=== PATIENT | female | born 1935 | race Caucasian/White ===

== ENCOUNTER 2017-10-08 15:44 | Emergency (ER) | payer OTHER, BC ==
[2017-10-08 16:01] VITALS: TEMP 97.8; BMI 22.4
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
[2017-10-08] MEDS ORDERED: SODIUM CHLORIDE 500 ML IV STA (16:24)
[2017-10-08 17:20] LABS: BASO % 0.7 % (0-2.0); EOS % 1.8 % (0-4.5); HEMATOCRIT 33.7 % (32.4-45.2); HEMOGLOBIN 11.2 GM/dL (10.7-15.3); LYMPH % 11.8 % (8-40); MCH 30.7 pg (25.7-33.7); MCHC 33.1 g/dl (32.0-36.0); MEAN CELL VOLUME 92.6 fl (80-96); MEAN PLT VOLUME 9.3 fl (7.5-11.1); NEUT % 77.7 % (42.8-82.8); PLATELET COUNT 184 K/MM3 (134-434); RBC 3.64 M/mm3 (3.60-5.2); WHITE BLOOD COUNT 7.6 K/mm3 (4.0-10.0)
[2017-10-08 17:39] LABS: URINE APPEARANCE CLEAR; URINE BILIRUBIN NEGATIVE (<2.0 mg/dL); URINE COLOR YELLOW; URINE GLUCOSE (UA) NEGATIVE (NEGATIVE); URINE KETONE NEGATIVE (NEGATIVE); URINE LEUK ESTERASE TRACE (NEGATIVE); URINE NITRITE NEGATIVE (NEGATIVE); URINE PROTEIN NEGATIVE (NEGATIVE)
[2017-10-08 17:44] LABS: EPI CELLS RARE /HPF (FEW); URINE MUCUS RARE
[2017-10-08 17:50] LABS: ALBUMIN 3.3 g/dl (3.4-5.0); ANION GAP 5 (8-16); BILIRUBIN,TOTAL 0.3 mg/dL (0.2-1.0); BLOOD UREA NITROGEN 21 mg/dL (7-18); CALCIUM 8.1 mg/dL (8.5-10.1); CHLORIDE 109 mmol/L (98-107); CO2 29 mmol/L (21-32); CREATININE 0.9 mg/dL (0.55-1.02); GLUCOSE,RANDOM 79 mg/dL (74-106); POTASSIUM 4.2 mmol/L (3.5-5.1); SGOT/AST 15 U/L (15-37); SGPT/ALT 12 U/L (12-78); SODIUM 143 mmol/L (136-145); TOT PROT 6.4 g/dl (6.4-8.2)
[2017-10-08 17:52] LABS: ALK PHOS 51 U/L (45-117)
[2017-10-08 19:23] VITALS: BP 114/51; PULSE 70
--- NOTE | 2017-10-09 13:22 | EKG ---
Test Reason : Blood Pressure : / mmHG Vent. Rate : 059 BPM Atrial Rate : 059 BPM P-R Int : 198 ms QRS Dur : 070 ms QT Int : 476 ms P-R-T Axes : 076 004 107 degrees QTc Int : 471 ms SINUS BRADYCARDIA VOLTAGE CRITERIA FOR LEFT VENTRICULAR HYPERTROPHY ABNORMAL ECG WHEN COMPARED WITH ECG OF 16-JUL-2012 10:16, QUESTIONABLE CHANGE IN QRS AXIS NONSPECIFIC T WAVE ABNORMALITY NO LONGER EVIDENT IN INFERIOR LEADS T WAVE INVERSION NOW EVIDENT IN LATERAL LEADS Confirmed by KELLEN GROVE, TONIA ([id number]) on 10/09/2017 1:22:00 PM Referred By: Confirmed By:TONIA FOREMAN MD
== END 2017-10-08 21:01 | disposition home or self-care (01) ==
LOC: JER 15:44
DX: R55 Syncope and collapse (principal); I95.89 Other hypotension; E78.5 Hyperlipidemia, unspecified; Z87.19 Personal history of other diseases of the digestive system; Z87.448 Personal history of other diseases of urinary system; Z86.2 Personal history of diseases of the blood and blood-forming organs and certain disorders involving the immune mechanism
CPT/HCPCS: 36415; 71045-TC-FY; 80053; 81003; 81015; 82550; 82553; 84484; 85025; 87086; 93005; 93010; 99284-25; J7030

== ENCOUNTER 2018-12-29 11:54 | Inpatient (IN) | payer OTHER, BC | END 2019-01-01 13:35 | LOC: J7W 12-30 06:02 → JER 11:54 → JERBED 18:51 ==

== ENCOUNTER 2023-11-25 13:43 | Inpatient (IN) | payer OTHER, BC ==
[2023-11-25] MEDS ORDERED: RAPID SEQUENCE INTUBATION KIT NR ONE (14:03)
[2023-11-25] MEDS ORDERED: ROCURONIUM BROMIDE 50 MG/5 ML SYRINGE ONE ×2 (14:04→14:56)
[2023-11-25] MEDS ORDERED: ETOMIDATE 20 MG/10 ML VIAL IVPUSH ONE (14:05)
[2023-11-25] MEDS: ETOMIDATE 20 MG/10 ML VIAL IVPUSH ONE (14:10)
[2023-11-25] MEDS: EPINEPHrine 1:10,000 (P-F SYR) 1 MG/10 ML DISP.SYRIN IVPUSH ONE ×3 (14:10→17:31)
[2023-11-25] MEDS: ROCURONIUM BROMIDE 50 MG/5 ML VIAL IV ONE (14:10)
[2023-11-25 14:18] LABS: BASO % 0.4 % (0-2.0); EOS % 0.2 % (0-4.5); HEMATOCRIT 40.8 % (32.4-45.2); HEMOGLOBIN 13.2 GM/dL (10.7-15.3); LYMPH % 9.2 % (8-40); MCH 30.9 pg (25.7-33.7); MCHC 32.3 g/dl (32.0-36.0); MEAN CELL VOLUME 95.7 fl (80-96); MONO % 1.8 % (3.8-10.2); NEUT % 88.4 % (42.8-82.8); PLATELET COUNT 246 10^3/uL (134-434); RBC 4.26 M/mm3 (3.60-5.2); RDW 14.1 % (11.6-15.6); WHITE BLOOD COUNT 16.4 K/mm3 (4.0-10.0)
[2023-11-25] MEDS: SODIUM CHLORIDE 0.9% 1000 ML INFUS.BAG IV STA (14:19)
[2023-11-25 14:23] LABS: INR 0.95 (0.83-1.09); PROTHROMBIN TIME (PATIENT) 10.7 SEC (9.7-13.0)
[2023-11-25] MEDS ORDERED: VANCOMYCIN/WATER 1250 MG 1,250 MG/250 ML BAG IVPB ONE (14:23)
[2023-11-25] MEDS ORDERED: PIPERACILLIN/TAZOB 4.5 GM 4.5 GM/100 ML BAG IVPB ONE (14:23)
[2023-11-25] MEDS ORDERED: NOREPINEPHRINE BITARTRATE/D5W 8 MG/250 ML BAG IVPB ONE (14:24)
[2023-11-25 14:26] LABS: ACTIVATED PTT 18.9 SECONDS (25.2-36.5)
[2023-11-25 14:32] LABS: VENOUS PCO2 66.7 mmHg (38-52)
[2023-11-25] MEDS: VANCOMYCIN/WATER 1250 MG 1,250 MG/250 ML BAG IVPB ONE (14:34)
[2023-11-25] MEDS: PIPERACILLIN/TAZOB 4.5 GM 4.5 GM in DEXTROSE 5%-WATER 100 ML IVPB ONE (14:34)
[2023-11-25 14:52] LABS: VENOUS PH 7.124 (7.310-7.410)
[2023-11-25 14:55] LABS: EPI CELLS 12 /uL (0-25.1); HYALINE CASTS 0 /uL (0-3.1); PH,URINE 7.5 (5.0-8.0); URINE APPEARANCE CLEAR; URINE BACTERIA 181 /uL (0-1359); URINE BILIRUBIN NEGATIVE (NEGATIVE); URINE COLOR YELLOW; URINE GLUCOSE (UA) TRACE (NEGATIVE); URINE KETONE NEGATIVE (NEGATIVE); URINE LEUK ESTERASE NEGATIVE (NEGATIVE); URINE NITRITE NEGATIVE (NEGATIVE); URINE PROTEIN 2+ (NEGATIVE); URINE RBC 6 /uL (0-23.9); URINE WBC 32 /uL (0-25.8)
[2023-11-25] MEDS ORDERED: FENTANYL NS IVPB 500 MCG/100 ML BAG IVPB SCH (15:00)
[2023-11-25 15:08] LABS: LACTIC ACID 8.8 mmol/L (0.4-2.0)
[2023-11-25] MEDS ORDERED: FENTANYL NS IVPB 500 MCG/100 ML BAG IVPB ONE (15:08)
[2023-11-25] MEDS: FENTANYL NS IVPB 500 MCG/100 ML BAG IVPB SCH (15:13)
[2023-11-25 15:14] LABS: POTASSIUM 3.9 mmol/L (3.5-5.1)
[2023-11-25 15:16] LABS: CALCIUM 9.4 mg/dL (8.5-10.1)
[2023-11-25 15:17] LABS: ALBUMIN 3.8 g/dl (3.4-5.0); BLOOD UREA NITROGEN 29.5 mg/dL (7-18)
[2023-11-25 15:19] LABS: CREATININE 1.9 mg/dL (0.55-1.3)
[2023-11-25 15:21] LABS: BILIRUBIN,TOTAL 0.7 mg/dL (0.2-1); TOT PROT 7.1 g/dl (6.4-8.2)
[2023-11-25] MEDS ORDERED: INSULIN (LEVEMIR) 100 UNITS/ML UNITS SQ ONE (16:23)
[2023-11-25 16:51] LABS: LACTIC ACID 9.1 mmol/L (0.4-2.0)
[2023-11-25] MEDS: NOREPINEPHRINE BITARTRATE/D5W 8 MG/250 ML BAG IVPB SCH (17:00)
[2023-11-25 17:27] LABS: ARTERIAL BLD GAS O2 SATURATION 99.7 % (95-98); ARTERIAL BLOOD GAS PO2 335.5 mmHg (80-100); ARTERIAL BLOOD GAS pH 7.226 (7.350-7.450)
[2023-11-25] MEDS: DEXTROSE 5% IVPB SCH (17:32)
[2023-11-25] MEDS: WATER IVPB SCH (17:32)
[2023-11-25] MEDS: VANCOMYCIN IVPB SCH (17:32)
[2023-11-25] MEDS: SODIUM CHLORIDE 0.9% 500 ML INFUS.BAG IV ONE (17:36)
[2023-11-25] MEDS ORDERED: VANCOMYCIN/WATER FOR INJ (PEG) 750 MG/150 ML BAG IVPB SCH (17:46)
[2023-11-25] MEDS ORDERED: PIPERACILLIN/TAZOB 2.25 GM 2.25 GM in DEXTROSE 5%-WATER - 50 ML IVPB SCH (18:00)
[2023-11-25] MEDS: DEXMEDETOMIDINE PREMIX 400 MCG/100 ML BAG IVPB SCH (19:14)
[2023-11-25] MEDS: SODIUM CHLORIDE 1,000 ML IV SCH (19:27)
[2023-11-25 20:11] LABS: LACTIC ACID 5.5 mmol/L (0.4-2.0)
[2023-11-25] MEDS ORDERED: GABAPENTIN 300 MG CAPSULE PO SCH (22:00)
[2023-11-25] MEDS: PIPERACILLIN/TAZOB 2.25 GM 2.25 GM in DEXTROSE 5%-WATER - 50 ML IVPB SCH (23:13)
[2023-11-25] MEDS: HEPARIN NA (PORCINE) 5,000 UNITS/ML 1ML VIAL SQ SCH (23:13)
[2023-11-25] MEDS: MUPIROCIN 2% TOPICAL OINTMENT FOR DECOLONIZATION NS SCH (23:14)
[2023-11-25] MEDS: LACTATED RINGERS SOLUTION 1000 ML INFUS.BAG IV ONE (23:14)
[2023-11-25] MEDS: CHLORHEXIDINE GLUCONATE 4% CLEANSER FOR DECOLONIZATION TP SCH (23:15)
[2023-11-26] MEDS ORDERED: FENTANYL NS IVPB 500 MCG/100 ML BAG IVPB ONE (04:13)
[2023-11-26 07:48] LABS: HEMATOCRIT 35.1 % (32.4-45.2); HEMOGLOBIN 11.5 GM/dL (10.7-15.3); MCH 30.9 pg (25.7-33.7); MCHC 32.6 g/dl (32.0-36.0); MEAN CELL VOLUME 94.6 fl (80-96); MEAN PLT VOLUME 9.2 fl (7.5-11.1); PLATELET COUNT 159 10^3/uL (134-434); RBC 3.71 M/mm3 (3.60-5.2); RDW 13.9 % (11.6-15.6); WHITE BLOOD COUNT 15.3 K/mm3 (4.0-10.0)
[2023-11-26 08:07] LABS: POTASSIUM 3.6 mmol/L (3.5-5.1)
[2023-11-26 08:18] LABS: MAGNESIUM 1.7 mg/dL (1.8-2.4)
[2023-11-26 08:20] LABS: CREATININE 1.5 mg/dL (0.55-1.3); PHOSPHOROUS 4.3 mg/dL (2.5-4.9)
[2023-11-26 08:21] LABS: ALBUMIN 2.7 g/dl (3.4-5.0); CALCIUM 7.9 mg/dL (8.5-10.1)
[2023-11-26 08:22] LABS: BILIRUBIN,TOTAL 0.9 mg/dL (0.2-1); TOT PROT 5.1 g/dl (6.4-8.2)
[2023-11-26 08:28] LABS: ARTERIAL BLD GAS O2 SATURATION 98.3 % (95-98); ARTERIAL BLOOD GAS BASE EXCESS -3.7 mmol/L (-2-2); ARTERIAL BLOOD GAS PO2 126.2 mmHg (80-100)
[2023-11-26 08:35] LABS: ALLENS TEST POSITIVE
[2023-11-26 08:37] LABS: VENT MODE CPAP/PSV; VENT RATE 16
[2023-11-26] MEDS: MAGNESIUM 2GM/50ML STERILE WATER IVPB IVPB ONE (08:54)
[2023-11-26] MEDS: DONEPEZIL HCL 10 MG TABLET (FP) PO SCH (09:23)
[2023-11-26] MEDS: ATORVASTATIN CA 20 MG TABLET (FP) PO SCH (09:23)
[2023-11-26] MEDS: CEFTRIAXONE 1 GM in DEXTROSE 5%-WATER - 50 ML IVPB SCH (09:53)
[2023-11-26] MEDS ORDERED: levETIRAcetam 250 MG TABLET PO SCH (10:00)
[2023-11-26] MEDS ORDERED: CITALOPRAM HYDROBROMIDE 20 MG TABLET PO SCH (10:00)
[2023-11-26] MEDS: levETIRAcetam 500 MG/5 ML INJECTION VIAL IVPB SCH ×2 (11:03→11:40)
[2023-11-26 12:45] LABS: ANISOCYTOSIS 0; MACROCYTOSIS 0; PLATELET ESTIMATE ADEQUATE
[2023-11-26] MEDS ORDERED: VANCOMYCIN/WATER FOR INJ (PEG) 750 MG/150 ML BAG IVPB SCH (14:00)
[2023-11-26] MEDS: MIDODRINE HCL 5 MG TABLET PO SCH (22:48)
[2023-11-27 07:32] LABS: HEMATOCRIT 32.2 % (32.4-45.2); HEMOGLOBIN 10.6 GM/dL (10.7-15.3); MCH 30.7 pg (25.7-33.7); MCHC 32.9 g/dl (32.0-36.0); MEAN CELL VOLUME 93.4 fl (80-96); MEAN PLT VOLUME 9.5 fl (7.5-11.1); PLATELET COUNT 155 10^3/uL (134-434); RBC 3.45 M/mm3 (3.60-5.2); RDW 13.7 % (11.6-15.6); WHITE BLOOD COUNT 11.2 K/mm3 (4.0-10.0)
[2023-11-27 07:41] LABS: POTASSIUM 3.1 mmol/L (3.5-5.1)
[2023-11-27 07:43] LABS: BLOOD UREA NITROGEN 32.7 mg/dL (7-18); CALCIUM 8.1 mg/dL (8.5-10.1); MAGNESIUM 2.1 mg/dL (1.8-2.4)
[2023-11-27 07:47] LABS: CREATININE 0.8 mg/dL (0.55-1.3); PHOSPHOROUS 2.2 mg/dL (2.5-4.9)
[2023-11-27] MEDS: POTASSIUM CHLORIDE ORAL LIQUID 20 MEQ/15 ML PO ONE (08:31)
[2023-11-27] MEDS: ALBUMIN HUMAN 25% 100 ML VIAL IV ONE (10:44)
[2023-11-27] MEDS: NAPH,MB-DB/K PH,MBDB POWDER PACKET PO ONE (15:57)
[2023-11-27] MEDS: SODIUM CHLORIDE 1,000 ML IV SCH (19:25)
[2023-11-27] MEDS: HEPARIN NA (PORCINE) 5,000 UNITS/ML 1ML VIAL SQ SCH (21:16)
[2023-11-27] MEDS: levETIRAcetam 500 MG/5 ML INJECTION VIAL IVPB SCH (21:17)
[2023-11-27] MEDS ORDERED: MUPIROCIN 2% TOPICAL OINTMENT FOR DECOLONIZATION NS SCH (22:00)
[2023-11-27] MEDS ORDERED: CHLORHEXIDINE GLUCONATE 4% CLEANSER FOR DECOLONIZATION TP SCH (22:00)
[2023-11-28] MEDS: FUROSEMIDE 100 MG/10 ML INJECTABLE VIAL IVPUSH ONE (01:21)
[2023-11-28] MEDS: ALBUTEROL SO4 2.5/IPRATROPIUM 0.5 INH SOL 3 ML VIAL.NEB. NEB ONE (01:36)
[2023-11-28] MEDS: ALBUTEROL SO4 2.5/IPRATROPIUM 0.5 INH SOL 3 ML VIAL.NEB. NEB SCH (07:15)
[2023-11-28] MEDS ORDERED: ALBUTEROL SO4 2.5/IPRATROPIUM 0.5 INH SOL 3 ML VIAL.NEB. NEB SCH (08:00)
[2023-11-28 08:01] LABS: HEMATOCRIT 36.3 % (32.4-45.2); HEMOGLOBIN 12.2 GM/dL (10.7-15.3); MCH 31.1 pg (25.7-33.7); MCHC 33.6 g/dl (32.0-36.0); MEAN CELL VOLUME 92.6 fl (80-96); MEAN PLT VOLUME 9.6 fl (7.5-11.1); PLATELET COUNT 170 10^3/uL (134-434); RBC 3.92 M/mm3 (3.60-5.2); RDW 13.8 % (11.6-15.6); WHITE BLOOD COUNT 12.4 K/mm3 (4.0-10.0)
[2023-11-28 08:10] LABS: CHLORIDE 107 mmol/L (98-107); SODIUM 146 mmol/L (136-145)
[2023-11-28 08:12] LABS: CALCIUM 8.7 mg/dL (8.5-10.1)
[2023-11-28 08:13] LABS: BLOOD UREA NITROGEN 25.4 mg/dL (7-18); CO2 31 mmol/L (21-32); GLUCOSE,RANDOM 131 mg/dL (74-106); MAGNESIUM 1.5 mg/dL (1.8-2.4)
[2023-11-28 08:16] LABS: PHOSPHOROUS 1.9 mg/dL (2.5-4.9)
[2023-11-28 08:18] LABS: CREATININE 0.9 mg/dL (0.55-1.3)
[2023-11-28 08:51] LABS: ANION GAP 7 mmol/L (4-13); POTASSIUM 2.5 mmol/L (3.5-5.1)
[2023-11-28] MEDS ORDERED: MIDODRINE HCL 5 MG TABLET PO SCH (10:00)
[2023-11-28] MEDS: CEFTRIAXONE 1 GM in DEXTROSE 5%-WATER - 50 ML IVPB SCH (10:36)
[2023-11-28] MEDS: ATORVASTATIN CA 20 MG TABLET (FP) PO SCH (10:36)
[2023-11-28] MEDS: POTASSIUM CHLORIDE ORAL LIQUID 20 MEQ/15 ML PO ONE ×2 (12:06→20:02)
[2023-11-28] MEDS: KCL 10 MEQ IVPB 10 MEQ/100 ML INFUS.BAG IVPB SCH ×2 (12:15→14:23)
[2023-11-28] MEDS: LACTATED RINGERS SOLUTION 1,000 ML/1,000 ML INFUS.BAG IV SCH (12:28)
[2023-11-28] MEDS ORDERED: POTASSIUM CHLORIDE ORAL LIQUID 20 MEQ/15 ML PO ONE (13:30)
[2023-11-28 13:59] LABS: LACTIC ACID 3.2 mmol/L (0.4-2.0)
[2023-11-28] MEDS: MAGNESIUM 2GM/50ML STERILE WATER IVPB IVPB ONE (14:25)
[2023-11-28 16:42] LABS: LACTIC ACID 2.5 mmol/L (0.4-2.0)
[2023-11-28] MEDS: AMPICILLIN NA/SULBACTAM NA 1.5 GM in SODIUM CHLORIDE 100 ML IVPB SCH (17:24)
[2023-11-29] MEDS: hydrOXYzine PAMOATE 25 MG CAPSULE (FP) PO ONE (01:39)
[2023-11-29 08:38] LABS: HEMATOCRIT 32.5 % (32.4-45.2); HEMOGLOBIN 11.3 GM/dL (10.7-15.3); MCH 31.6 pg (25.7-33.7); MCHC 34.9 g/dl (32.0-36.0); MEAN CELL VOLUME 90.7 fl (80-96); MEAN PLT VOLUME 9.3 fl (7.5-11.1); PLATELET COUNT 186 10^3/uL (134-434); RBC 3.58 M/mm3 (3.60-5.2); WHITE BLOOD COUNT 10.5 K/mm3 (4.0-10.0)
[2023-11-29 08:55] LABS: POTASSIUM 3.6 mmol/L (3.5-5.1)
[2023-11-29 08:57] LABS: ALBUMIN 2.7 g/dl (3.4-5.0); CALCIUM 7.9 mg/dL (8.5-10.1)
[2023-11-29 08:58] LABS: BLOOD UREA NITROGEN 18.6 mg/dL (7-18); MAGNESIUM 1.6 mg/dL (1.8-2.4)
[2023-11-29 09:00] LABS: CREATININE 0.7 mg/dL (0.55-1.3); PHOSPHOROUS 1.4 mg/dL (2.5-4.9)
[2023-11-29 09:02] LABS: BILIRUBIN,TOTAL 0.6 mg/dL (0.2-1); TOT PROT 5.7 g/dl (6.4-8.2)
[2023-11-29] MEDS: METOPROLOL TARTRATE 25 MG TABLET (FP) PO ONE (09:07)
[2023-11-29] MEDS: ASPIRIN 81 MG CHEWABLE TABLETS PO SCH (09:23)
[2023-11-29] MEDS: MAGNESIUM 2GM/50ML STERILE WATER IVPB IVPB ONE (16:00)
[2023-11-29] MEDS: POTASSIUM PHOSPHATE 15 MM in SODIUM CHLORIDE 250 ML IVPB ONE (17:18)
[2023-11-29 23:32] VITALS: BMI 20.2
[2023-11-30 08:43] LABS: HEMATOCRIT 37.2 % (32.4-45.2); HEMOGLOBIN 12.6 GM/dL (10.7-15.3); MCH 31.4 pg (25.7-33.7); MCHC 33.9 g/dl (32.0-36.0); MEAN CELL VOLUME 92.5 fl (80-96); MEAN PLT VOLUME 9.2 fl (7.5-11.1); PLATELET COUNT 155 10^3/uL (134-434); RBC 4.02 M/mm3 (3.60-5.2); WHITE BLOOD COUNT 10.3 K/mm3 (4.0-10.0)
[2023-11-30 09:05] LABS: POTASSIUM 3.3 mmol/L (3.5-5.1)
[2023-11-30 09:20] LABS: BLOOD UREA NITROGEN 14.6 mg/dL (7-18); CALCIUM 8.1 mg/dL (8.5-10.1); MAGNESIUM 2.1 mg/dL (1.8-2.4)
[2023-11-30 09:21] LABS: ALBUMIN 2.7 g/dl (3.4-5.0)
[2023-11-30 09:23] LABS: CREATININE 0.5 mg/dL (0.55-1.3); PHOSPHOROUS 2.8 mg/dL (2.5-4.9)
[2023-11-30 09:25] LABS: BILIRUBIN,TOTAL 0.8 mg/dL (0.2-1); TOT PROT 6.1 g/dl (6.4-8.2)
[2023-11-30] MEDS: METOPROLOL TARTRATE 25 MG TABLET (FP) PO SCH (10:35)
[2023-11-30] MEDS: POTASSIUM CHLORIDE TABS 20 MEQ TABLET.ER (FP) PO ONE (10:38)
[2023-12-01] MEDS: METOPROLOL TARTRATE 5 MG/5 ML VIAL IVPUSH ONE ×2 (06:03→12:10)
[2023-12-01 07:38] LABS: HEMATOCRIT 35.9 % (32.4-45.2); MCH 30.9 pg (25.7-33.7); MCHC 33.5 g/dl (32.0-36.0); MEAN CELL VOLUME 92.2 fl (80-96); PLATELET COUNT 191 10^3/uL (134-434); RBC 3.89 M/mm3 (3.60-5.2); WHITE BLOOD COUNT 8.4 K/mm3 (4.0-10.0)
[2023-12-01 07:47] LABS: POTASSIUM 3.9 mmol/L (3.5-5.1)
[2023-12-01 07:49] LABS: BLOOD UREA NITROGEN 23.2 mg/dL (7-18); CALCIUM 8.7 mg/dL (8.5-10.1)
[2023-12-01 07:50] LABS: ALBUMIN 2.7 g/dl (3.4-5.0)
[2023-12-01 07:53] LABS: CREATININE 0.7 mg/dL (0.55-1.3)
[2023-12-01 07:54] LABS: BILIRUBIN,TOTAL 0.6 mg/dL (0.2-1)
[2023-12-01] MEDS ORDERED: METOPROLOL TARTRATE 5 MG/5 ML VIAL ONE (12:03)
[2023-12-01] MEDS: METOPROLOL TARTRATE 25 MG TABLET (FP) PO ONE (12:42)
[2023-12-01] MEDS: METOPROLOL TARTRATE 25 MG TABLET (FP) PO SCH (22:05)
[2023-12-02 08:19] LABS: POTASSIUM 3.8 mmol/L (3.5-5.1)
[2023-12-02 08:21] LABS: ALBUMIN 2.7 g/dl (3.4-5.0); CALCIUM 8.3 mg/dL (8.5-10.1)
[2023-12-02 08:22] LABS: BLOOD UREA NITROGEN 31.4 mg/dL (7-18)
[2023-12-02 08:25] LABS: CREATININE 0.7 mg/dL (0.55-1.3)
[2023-12-02 08:26] LABS: BILIRUBIN,TOTAL 0.5 mg/dL (0.2-1); TOT PROT 5.7 g/dl (6.4-8.2)
[2023-12-02] MEDS ORDERED: METOPROLOL TARTRATE 25 MG TABLET (FP) PO SCH (11:23)
[2023-12-02] MEDS: METOPROLOL TARTRATE 50 MG TABLET (FP) PO SCH (21:07)
[2023-12-03 07:25] LABS: POTASSIUM 3.9 mmol/L (3.5-5.1)
[2023-12-03 07:27] LABS: CALCIUM 8.5 mg/dL (8.5-10.1)
[2023-12-03 07:28] LABS: ALBUMIN 2.7 g/dl (3.4-5.0); BLOOD UREA NITROGEN 32.6 mg/dL (7-18); MAGNESIUM 1.8 mg/dL (1.8-2.4)
[2023-12-03 07:29] LABS: HEMATOCRIT 33.5 % (32.4-45.2); HEMOGLOBIN 11.2 GM/dL (10.7-15.3); MCHC 33.5 g/dl (32.0-36.0); MEAN CELL VOLUME 92.7 fl (80-96); MEAN PLT VOLUME 9.1 fl (7.5-11.1); PLATELET COUNT 217 10^3/uL (134-434); RBC 3.61 M/mm3 (3.60-5.2); RDW 14.1 % (11.6-15.6); WHITE BLOOD COUNT 8.2 K/mm3 (4.0-10.0)
[2023-12-03 07:31] LABS: CREATININE 0.9 mg/dL (0.55-1.3); PHOSPHOROUS 3.5 mg/dL (2.5-4.9)
[2023-12-03 07:32] LABS: TOT PROT 5.7 g/dl (6.4-8.2)
[2023-12-03 07:33] LABS: BILIRUBIN,TOTAL 0.4 mg/dL (0.2-1)
[2023-12-04 08:03] LABS: HEMATOCRIT 34.6 % (32.4-45.2); HEMOGLOBIN 11.5 GM/dL (10.7-15.3); MCHC 33.4 g/dl (32.0-36.0); MEAN PLT VOLUME 9.3 fl (7.5-11.1); PLATELET COUNT 232 10^3/uL (134-434); RBC 3.72 M/mm3 (3.60-5.2); RDW 13.9 % (11.6-15.6); WHITE BLOOD COUNT 10.7 K/mm3 (4.0-10.0)
[2023-12-04 08:23] LABS: POTASSIUM 3.9 mmol/L (3.5-5.1)
[2023-12-04 08:33] LABS: ALBUMIN 2.7 g/dl (3.4-5.0); BLOOD UREA NITROGEN 24.5 mg/dL (7-18); CALCIUM 8.2 mg/dL (8.5-10.1); MAGNESIUM 1.7 mg/dL (1.8-2.4)
[2023-12-04 08:36] LABS: CREATININE 0.7 mg/dL (0.55-1.3)
[2023-12-04 08:38] LABS: BILIRUBIN,TOTAL 0.4 mg/dL (0.2-1); TOT PROT 5.9 g/dl (6.4-8.2)
[2023-12-04] MEDS: MAGNESIUM SULF 50% (8.12 MEQ/2 ML-1 GM VIAL) IVPB ONE (17:05)
[2023-12-05 07:15] LABS: HEMATOCRIT 33.1 % (32.4-45.2); HEMOGLOBIN 11.2 GM/dL (10.7-15.3); MCH 31.6 pg (25.7-33.7); MCHC 33.9 g/dl (32.0-36.0); MEAN PLT VOLUME 8.9 fl (7.5-11.1); PLATELET COUNT 241 10^3/uL (134-434); RBC 3.56 M/mm3 (3.60-5.2); RDW 13.6 % (11.6-15.6); WHITE BLOOD COUNT 10.4 K/mm3 (4.0-10.0)
[2023-12-05 07:31] LABS: POTASSIUM 4.2 mmol/L (3.5-5.1)
[2023-12-05 07:38] LABS: ALBUMIN 2.6 g/dl (3.4-5.0); BLOOD UREA NITROGEN 30.2 mg/dL (7-18); MAGNESIUM 2.1 mg/dL (1.8-2.4)
[2023-12-05 07:41] LABS: CREATININE 0.7 mg/dL (0.55-1.3); PHOSPHOROUS 3.3 mg/dL (2.5-4.9)
[2023-12-05 07:43] LABS: BILIRUBIN,TOTAL 0.6 mg/dL (0.2-1); TOT PROT 5.8 g/dl (6.4-8.2)
[2023-12-05] MEDS: ATORVASTATIN CA 40 MG TABLET (FP) PO SCH (09:00)
[2023-12-05 15:15] VITALS: RESP 18
[2023-12-05 18:38] VITALS: BP 149/66; PULSE 78; TEMP 97.7
== END 2023-12-05 20:46 | DRG 871 ==
LOC: JER 13:43 → JERBED 16:01 → JICU 21:32 → J4W 11-27 15:29
PROVIDERS: ADMIT Internal Medicine Pulmonary Disease; ATTEND Internal Medicine
PROC: 0BH17EZ Insertion of Endotracheal Airway into Trachea, Via Natural or Artificial Opening (ICD-10-PCS; principal; 2023-11-25)
PROC: 5A1935Z Respiratory Ventilation, Less than 24 Consecutive Hours (ICD-10-PCS; 2023-11-25)
PROC: 4A10X4Z Monitoring of Central Nervous Electrical Activity, External Approach (ICD-10-PCS; 2023-12-02)
DX: A41.89 Other specified sepsis (principal); G93.41 Metabolic encephalopathy; I63.9 Cerebral infarction, unspecified; R65.21 Severe sepsis with septic shock; J96.01 Acute respiratory failure with hypoxia; J69.0 Pneumonitis due to inhalation of food and vomit; N39.0 Urinary tract infection, site not specified; E87.20 Acidosis, unspecified; N17.9 Acute kidney failure, unspecified; I24.89 Other forms of acute ischemic heart disease; I47.10 Supraventricular tachycardia, unspecified; E87.0 Hyperosmolality and hypernatremia; R33.9 Retention of urine, unspecified; R56.9 Unspecified convulsions; H54.40 Blindness, one eye, unspecified eye; E78.5 Hyperlipidemia, unspecified; H91.90 Unspecified hearing loss, unspecified ear; I95.89 Other hypotension; K21.9 Gastro-esophageal reflux disease without esophagitis; E86.0 Dehydration; K57.90 Diverticulosis of intestine, part unspecified, without perforation or abscess without bleeding; I44.0 Atrioventricular block, first degree; B96.20 Unspecified Escherichia coli [E. coli] as the cause of diseases classified elsewhere
CPT/HCPCS: 0241U-QW; 36415; 36600; 70450-TC; 70551-TC; 71045-TC-FY; 80048; 80053; 81003; 82803; 83605; 83735; 84100; 84132; 84484; 85025; 85027; 85610; 85730; 86850; 86900; 86901; 87040; 87086; 87186; 93005; 93010; 93306-TC; 93971-TC; 94002; 94640; 95816; 97116-GP; 97161-GP; 99285-25; J1644